=== PATIENT | female | born 1970 | race Caucasian/White ===

== ENCOUNTER 2017-03-06 19:58 | Emergency (ER) | payer SELFPAY ==
[~2017-03-06] VITALS: Ht 165.1 cm; Wt 90.9 kg
[2017-03-06 20:01] VITALS: BP 159/98; PULSE 103; RESP 16; TEMP 98.3; O2SAT 98
[2017-03-06] MEDS ORDERED: IBUP1TAB7 PO (22:11)
[2017-03-06] MEDS ORDERED: SOMA350T PO (22:11)
[2017-03-06] MEDS ORDERED: traMADol HCL 50 MG TAB PO ONE (22:15)
[2017-03-06] MEDS ORDERED: LIDOCAINE HCL 1% 50 ML VIAL INFIL ONE (22:15)
[2017-03-06] MEDS ORDERED: BACT800T5 PO (22:57)
[2017-03-06] MEDS ORDERED: CEPH-460 PO (22:57)
--- NOTE | 2017-03-06 22:57 | PD ---
HPI Chief Complaint: Skin Problem Time Seen by Provider: 22:01 Travel History International Travel<30 days: No Contact w/Intl Traveler<30days: No Traveled to known affect area: No History of Present Illness HPI Patient is a 46-year-old female who comes in because she is concerned there is still packing in the abscess to her face. She had an abscess above her lip, that was drained at an outside facility a couple days ago. She says she took the packing out today and is concerned that it broke off. She was given a prescription for antibiotics, but has not filled it yet. She denies fever or chills. She is still having pain to the area. She says she has been putting ice on the area to help with pain. PFSH Past Medical History Medical History: Denies Significant Hx Diminished Hearing: No Tetanus Vaccination: Unknown Influenza Vaccination: No ?: Not LMP: 06/2016 Menopausal: Yes : 2 Para: 2 Miscarriage: 2 Past Surgical History Surgical History: No Previous Surgery Social History Alcohol Use: Yes (rare) Tobacco Use: No Substance Use: No Allergies-Medications (Allergen,Severity, Reaction): Coded Allergies: acetaminophen (Verified Allergy, Intermediate, 03/06/17) hydrocodone (Verified Allergy, Intermediate, 03/06/17) Reported Meds & Prescriptions Reported Meds & Active Scripts Active Keflex (Cephalexin) 500 Mg Cap 500 Mg PO Q6H 7 Days Bactrim DS (Sulfamethoxazole-Trimethoprim) 800-160 Mg Tab 1 Tab PO BID Reported Ibuprofen 800 Mg Tab 800 Mg PO Q12HR PRN Soma (Carisoprodol) 350 Mg Tab 350 Mg PO QID PRN Review of Systems Except as stated in HPI: all other systems reviewed are Neg General / Constitutional: No: Fever, Chills HENT: No: Headaches, Lightheadedness Cardiovascular: No: Chest Pain or Discomfort Respiratory: No: Shortness of Breath Gastrointestinal: No: Nausea, Vomiting Musculoskeletal: No: Myalgias Skin: Positive Lesions, No Rash, No Itching Neurologic: No: Weakness, Dizziness Physical Exam Narrative GENERAL: Awake and alert, in no acute distress. SKIN: Focused skin assessment warm/dry. 3 cm circular area of erythema on the right side above the lip. No fluctuance. HEAD: Atraumatic. Normocephalic. EYES: Pupils equal and round. No scleral icterus. ENT: Mucous membranes pink and moist. NECK: Trachea midline. No JVD. CARDIOVASCULAR: Regular rate and rhythm. No murmur appreciated. RESPIRATORY: No accessory muscle use. Clear to auscultation. Breath sounds equal bilaterally. MUSCULOSKELETAL: No obvious deformities. No clubbing. No cyanosis. No edema. NEUROLOGICAL: Awake and alert. No obvious cranial nerve deficits. Motor grossly within normal limits. Normal speech. PSYCHIATRIC: Appropriate mood and affect; insight and judgment normal. Data Data Last Documented VS Vital Signs Date Time Temp Pulse Resp B/P (MAP) Pulse Ox O2 Delivery O2 Flow Rate FiO2 03/06/17 22:12 20 03/06/17 20:01 98.3 103 159/98 (118) 98 Orders Orders Tramadol (Ultram) (03/06/17 22:15) Lidocaine 1% Inj (50 Ml) (Xylocaine 1% I (03/06/17 22:15) Ed Discharge Order (03/06/17 22:58) MDM Medical Decision Making Medical Screen Exam Complete: Yes Emergency Medical Condition: Yes Differential Diagnosis Cellulitis versus abscess versus foreign body Narrative Course Patient is a 46-year-old female who comes in because she is inserted and there is packing stuck in her face. Exam shows an area of erythema that is hard to the touch. Incision and drainage performed, there is no packing that could be seen or felt in the wound. Patient says that she does not have insurance and cannot afford the antibiotics. She'll be switched to Bactrim and Keflex which shaking at [facility]. Advised to follow-up with [facility] and return to the ED as needed for any worsening symptoms. Procedures Procedure Narrative INCISION AND DRAINAGE OF ABSCESS: The area was prepped and was sterilely draped. A subcutaneous wheal of 1 % Xylocaine with a total number 6 mL was used to anesthetize the area properly. A number 11 scalpel was used to make a 2 -cm incision across the area of the abscess. The abscess was drained, it was explored, no foreign bodies were seen. Diagnosis Primary Impression: Cellulitis Qualified Codes: L03.211 - Cellulitis of face Referrals: [facility] Patient Instructions: Cellulitis (ED), General Instructions Additional Instructions: Take all of your antibiotics. Keep the wound clean and dry. Apply warm compresses. Return to the ED as needed for any worsening symptoms. Scripts Cephalexin (Keflex) 500 Mg Cap 500 MG PO Q6H for Infection for 7 Days, #28 CAP 0 Refills Prov: Massiel Flores MD 03/06/17 Sulfamethoxazole-Trimethoprim (Bactrim DS) 800-160 Mg Tab 1 TAB PO BID for Infection, #14 TAB 0 Refills Prov: Massiel Flores MD 03/06/17 Disposition: 01 DISCHARGE HOME Condition: Stable Massiel Flores MD Mar 06, 2017 22:57
== END 2017-03-06 23:19 | disposition home or self-care (01) ==
LOC: NEPD 19:58
DX: L03.211 Cellulitis of face (principal); L02.01 Cutaneous abscess of face
CPT/HCPCS: 10060